=== PATIENT | male | born 1975 | race Caucasian/White ===

== ENCOUNTER 2021-10-20 20:46 | Emergency (ER) | payer MEDICAID ==
[2021-10-20] MEDS ORDERED: Sodium Chloride 0.9% 1,000 ML IV ONE (21:55)
[2021-10-20] MEDS ORDERED: Ondansetron 4 MG/2 ML SDV IVPUSH ONE (21:55)
--- NOTE | 2021-10-20 22:00 | EDM.PDOC ---
ED HPI GENERAL MEDICAL PROBLEM - General Chief Complaint: General Stated Complaint: STOMACH PAIN Time Seen by Provider: 10/20/21 21:45 Source of Information: Reports: Patient - History of Present Illness INITIAL COMMENTS - FREE TEXT/NARRATIVE: 46-year-old gentleman came to the emergency department due to a 24-hour history of nausea and vomiting. He has not had any diarrhea. He is fully vaccinated against Covid but has not had his influenza vaccine. Has not had fever, chills, chest pain, shortness of breath. Has not tried anything at home specifically to alleviate the symptoms but he has been trying to drink Gatorade. He has been able to hold down some Gatorade this afternoon but he still has significant nausea. - Related Data Allergies Allergy/AdvReac Type Severity Reaction Status Date / Time No Known Allergies Allergy Verified 10/20/21 20:59 Home Meds: Home Meds Citalopram [Citalopram HBr] 40 mg PO DAILY 10/20/21 [History] Omeprazole 40 mg PO 10/20/21 [History] Past Medical History - Past Health History Medical/Surgical History: Denies Medical/Surgical History Respiratory History: Reports: Other (See Below) Other Respiratory History: runny nose last week Gastrointestinal History: Reports: Other (See Below) Other Gastrointestinal History: sensative stomach since gallbladder removal Psychiatric History: Reports: Anxiety Social & Family History - Family History Family Medical History: No Pertinent Family History - Tobacco Use Tobacco Use Status *Q: Current Every Day Tobacco User Years of Tobacco use: 25 Packs/Tins Daily: 0.5 Used Tobacco, but Quit: No - Caffeine Use Caffeine Use: Reports: Coffee Other Caffeine Use: occasional - Recreational Drug Use Recreational Drug Use: No ED ROS GENERAL - Review of Systems Review Of Systems: See Below Constitutional: Reports: Weakness HEENT: Reports: No Symptoms Respiratory: Reports: No Symptoms Cardiovascular: Reports: No Symptoms Endocrine: Reports: No Symptoms GI/Abdominal: Reports: Anorexia, Nausea, Vomiting : Reports: No Symptoms Musculoskeletal: Reports: No Symptoms Skin: Reports: No Symptoms Neurological: Reports: No Symptoms Psychiatric: Reports: No Symptoms Hematologic/Lymphatic: Reports: No Symptoms Immunologic: Reports: No Symptoms ED EXAM, GENERAL - Physical Exam Exam: See Below Exam Limited By: No Limitations General Appearance: Alert, No Apparent Distress Eye Exam: Bilateral Eye: EOMI Throat/Mouth: Other (Mucous membranes are dry) Head: Atraumatic, Normocephalic Neck: Normal Inspection Respiratory/Chest: No Respiratory Distress, Lungs Clear Cardiovascular: Normal Peripheral Pulses, Regular Rate, Rhythm Peripheral Pulses: 2+: Radial (L), Radial (R), Dorsalis Pedis (L), Dorsalis Pedis (R) GI/Abdominal: Normal Bowel Sounds Back Exam: Normal Inspection Extremities: Normal Inspection Neurological: Alert, Oriented, CN II-XII Intact, Normal Cognition, Normal Gait Psychiatric: Normal Affect, Normal Mood Skin Exam: Warm, Dry Course - Vital Signs Text/Narrative:: Review of labs shows that the patient is negative for influenza and Covid. Patient is likely dehydrated secondary to gastroenteritis. Patient was given 1 L normal saline and states that he feels better. Last Recorded V/S: Last Vital Signs Temp 36.4 C 10/20/21 21:13 Pulse 86 10/20/21 21:13 Resp 18 10/20/21 21:13 BP 107/63 10/20/21 21:13 Pulse Ox 96 10/20/21 21:13 - Orders/Labs/Meds Labs: Laboratory Tests 10/20/21 10/20/21 10/20/21 Range/Units 22:05 22:20 22:20 WBC 6.3 (3.2-10.1) x10-3/uL RBC 4.68 (3.90-5.90) x10(6)uL Hgb 14.3 (12.9-17.7) g/dL Hct 42.0 (38.3-50.1) % MCV 89.7 (80.8-98.7) fL MCH 30.5 (27.0-33.3) pg MCHC 34.0 (28.7-35.3) g/dL RDW 13.1 (12.4-15.0) % Plt Count 313 (117-477) x10(3)uL MPV 7.0 (6.7-11.0) fL Neut % (Auto) 54.1 (40.3-71.8) % Lymph % (Auto) 34.7 (15.8-45.3) % Hawkins % (Auto) 8.4 (5.5-15.2) % Eos % (Auto) 2.1 (0.1-6.8) % Baso % (Auto) 0.7 (0.3-3.8) % Neut # (Auto) 3.4 (1.7-6.9) x10-3/uL Lymph # (Auto) 2.2 (0.5-4.5) x10-3/uL Hawkins # (Auto) 0.5 (0.0-1.2) x10-3/uL Eos # (Auto) 0.1 (0.0-0.6) x10-3/uL Baso # (Auto) 0.0 (0.0-0.3) x10-3/uL Sodium 141 (135-145) mmol/L Potassium 4.1 (3.5-5.3) mmol/L Chloride 104 (100-110) mmol/L Carbon Dioxide 28 (21-32) mmol/L BUN 29 H (7-18) mg/dL Creatinine 1.1 (0.70-1.30) mg/dL Est Cr Clr Drug Dosing TNP Estimated GFR (MDRD) > 60 (>60) BUN/Creatinine Ratio 26.4 H (9-20) Glucose 124 H (80-116) mg/dL Calcium 8.8 (8.6-10.2) mg/dL Total Bilirubin 0.6 (0.1-1.3) mg/dL AST 16 (5-25) IU/L ALT 23 (12-36) U/L Alkaline Phosphatase 42 L (56-112) IU/L Total Protein 7.5 (6.0-8.0) g/dL Albumin 3.6 (3.5-5.2) g/dL Globulin 3.9 g/dL Albumin/Globulin Ratio 0.9 Influenza Type A RNA Negative (NEGATIVE) Influenza Type B RNA Negative (NEGATIVE) SARS-CoV-2 RNA (FRANCES) Negative (NEGATIVE) Meds: Medications Discontinued Medications Generic Name Dose Route Start Last Admin Trade Name Freq PRN Reason Stop Dose Admin Sodium Chloride 1,000 mls @ 999 mls/hr 10/20/21 21:55 10/20/21 22:05 Normal Saline IV 10/20/21 22:55 999 mls/hr .BOLUS ONE Administration Ondansetron HCl 4 mg 10/20/21 21:55 10/20/21 22:06 Ondansetron 4 Mg/2 Ml Sdv IVPUSH 10/20/21 21:56 4 mg ONETIME ONE Administration Departure - Departure Time of Disposition: 23:15 Disposition: Home, Self-Care 01 Condition: Good Clinical Impression: Gastroenteritis and colitis, viral - Discharge Information *PRESCRIPTION DRUG MONITORING PROGRAM REVIEWED*: Not Applicable *COPY OF PRESCRIPTION DRUG MONITORING REPORT IN PATIENT RADHIKA: Not Applicable Instructions: Viral Gastroenteritis, Adult, [id number] Referrals: Mando Kumari, [Primary Care Provider] - Forms: ED Department Discharge Additional Instructions: Patient instructed to continue to drink Gatorade and other fluids including water and follow-up with his primary care physician if he continues to have symptoms. Sepsis Event Note (ED) - Evaluation Sepsis Screening Result: No Definite Risk - Focused Exam Vital Signs: Vital Signs Temp Pulse Resp BP Pulse Ox 10/20/21 21:13 36.4 C 86 18 107/63 96
[2021-10-20 23:07] LABS: CORONAVIRUS COVID-19 NAA NEGATIVE (NEGATIVE)
== END 2021-10-20 23:35 | disposition home or self-care (01) ==
LOC: FB.ED 20:46
DX: A08.4 Viral intestinal infection, unspecified (principal); Z72.0 Tobacco use; Z20.822 Contact with and (suspected) exposure to COVID-19
CPT/HCPCS: 0240U; 36415; 80053; 85025; 96374; 99284; J2405; J7030

== ENCOUNTER 2021-10-26 10:44 | Emergency (ER) | payer MEDICAID | END 2021-10-26 11:33 | disposition home or self-care (01) | LOC: FB.ED 10:44 | DX: F41.9 Anxiety disorder, unspecified (principal); Z79.899 Other long term (current) drug therapy | CPT/HCPCS: 99283 ==

== ENCOUNTER 2025-02-22 22:36 | Emergency (ER) | payer MEDICAID ==
[2025-02-22] MEDS: Amoxicillin/Clavulanate K 875-125 MG Tab PO ONE (23:27)
[2025-02-22] MEDS: Sulfamethoxazole/Trimethoprim 800-160 MG Tab PO ONE (23:27)
== END 2025-02-22 23:28 | disposition home or self-care (01) ==
LOC: FB.ED 22:36
DX: L03.012 Cellulitis of left finger (principal); K21.9 Gastro-esophageal reflux disease without esophagitis; F17.210 Nicotine dependence, cigarettes, uncomplicated; Z79.899 Other long term (current) drug therapy
CPT/HCPCS: 99283; A9270